=== PATIENT | female | born 1940 | race Caucasian/White ===

== ENCOUNTER 2016-08-06 11:47 | Emergency (ER) | payer OTHER, MEDICAID ==
[2016-08-06 12:05] VITALS: TEMP 98.4
[2016-08-06] MEDS ORDERED: NS 1,000 ML IV ONE (12:51)
[2016-08-06] MEDS ORDERED: HYDROmorphONE/DILAUDID 1 MG/ML SYR IVP ONE (12:51)
[2016-08-06] MEDS ORDERED: METOCLOPRAMIDE 10 MG/2 ML VIAL IVP ONE (12:51)
--- NOTE | 2016-08-06 13:01 | EDPHY ---
H & P Stated Complaint: htn/awakened with saldivar not responding to meds Time Seen by Provider: 08/06/16 12:41 HPI/ROS: CHIEF COMPLAINT: Headache and high blood pressure HISTORY OF PRESENT ILLNESS: The patient is a 75-year-old female who comes to the emergency department with her family complaining of a headache and high blood pressure. She is not sure which began 1st. Headache began this morning when she awoke. She does not have any focal weakness or numbness. She does not feel nauseous. she denies any trauma. This is not the worst headache of her life. She states she had one similar about 2 weeks ago when she had a cold but those symptoms have since resolved. No fever. She does also have neck stiffness and pain with turning her head. REVIEW OF SYSTEMS: Constitutional: denies: chills, fever, recent illness, recent injury EENTM: denies: blurred vision, double vision, nose congestion Respiratory: denies: cough, shortness of breath Cardiac: denies: chest pain, irregular heart rate, lightheadedness, palpitations Gastrointestinal/Abdominal: denies: abdominal pain, diarrhea, nausea, vomiting, blood streaked stools Genitourinary: denies: dysuria, frequency, hematuria, pain Musculoskeletal: denies: joint pain, muscle pain Skin: denies: lesions, rash, jaundice, bruising Neurological: See HPI denies: numbness, paresthesia, tingling, dizziness, weakness Hematologic/Lymphatic: denies: blood clots, easy bleeding, easy bruising Immunologic/allergic: denies: HIV/AIDS, transplant EXAM: GENERAL: Well-appearing, well-nourished and in no acute distress. HEAD: Atraumatic, normocephalic. EYES: Pupils equal round and reactive to light, extraocular movements intact, sclera anicteric, conjunctiva are normal. ENT: TMs normal, nares patent, oropharynx clear without exudates. Moist mucous membranes. NECK: Mild pain and muscle spasming, improves with massage. LUNGS: Breath sounds clear to auscultation bilaterally and equal. No wheezes rales or rhonchi. HEART: Regular rate and rhythm without murmurs, rubs or gallops. ABDOMEN: Soft, nontender, normoactive bowel sounds. No guarding, no rebound. No masses appreciated. BACK: No CVA tenderness, no spinal tenderness, step-offs or deformities EXTREMITIES: Normal range of motion, no pitting or edema. No clubbing or cyanosis. NEUROLOGICAL: Cranial nerves II through XII grossly intact. Normal speech, normal gait. 5/5 strength, normal movement in all extremities, normal sensation PSYCH: Normal mood, normal affect. SKIN: Warm, dry, normal turgor, no visible rashes or lesions. Source: Patient Exam Limitations: No limitations - Personal History Current Tetanus Diphtheria and Acellular Pertussis (TDAP): Yes - Medical/Surgical History Hx Asthma: No Hx Chronic Respiratory Disease: No Hx Diabetes: No Hx Cardiac Disease: No Hx Renal Disease: No Hx Cirrhosis: No Hx Alcoholism: No Hx HIV/AIDS: No Hx Splenectomy or Spleen Trauma: No Other PMH: htn/choly - Family History Significant Family History: No pertinent family hx - Social History Smoking Status: Never smoked Alcohol Use: Sober Drug Use: None Constitutional: Initial Vital Signs Temperature (C) 36.9 C 08/06/16 12:02 Heart Rate 94 08/06/16 12:02 Respiratory Rate 18 08/06/16 12:02 Blood Pressure 213/86 H 08/06/16 12:02 O2 Sat (%) 94 08/06/16 12:02 O2 Delivery Mode Room Air O2 (L/minute) 2 Allergies/Adverse Reactions: No Known Allergies Allergy (Unverified 08/06/16 12:02) Home Medications: Medication Instructions Recorded Bp Med 08/06/16 Diclofenac Sodium 08/06/16 Metoclopramide [Reglan 10 mg tab 10 mg PO BID PRN #10 tab 08/06/16 (RX)] Medical Decision Making - Diagnostics Imaging: Discussed imaging studies w/ semiconductor dies loader Radiologist ED Course/Re-evaluation: 1:45 p.m. the patient is now receiving her headache medication. We discussed her CT results which are reassuring. She continues to have headache. It is not surrounding her maxillary sinus. We will treat her for her headache and observe her blood pressure. 2:30 p.m. the patient is feeling completely better. She states her headache is gone. She is moving her neck left and right without difficulty. Blood pressure is now 150/70. She is eager to go home. We will give her prescription for Reglan in case her headache returns. She remains afebrile with stable vital signs Differential Diagnosis: Partial list of the Differential diagnosis considered include but were not limited to; acute headache, migraine, subarachnoid, hypertensive urgency and although unlikely based on the history and physical exam, I also considered acute coronary disease, dissection masses, meningitis. I discussed these differential diagnoses and the plan with the patient as well as the usual and expected course. The patient understands that the diagnosis is provisional and that in medicine we are not always correct and that further workup is often warranted. Usual and customary warnings were given. All of the patient's questions were answered. The patient was instructed to return to the emergency department should the symptoms at all worsen or return, otherwise to followup with the physician as we discussed. - Data Points Laboratory Results: Laboratory Results 08/06/16 12:33 08/06/16 12:33 Medications Given: Discontinued Medications Diphenhydramine HCl (Benadryl Injection) 25 mg IVP EDNOW ONE Stop: 08/06/16 12:52 Last Admin: 08/06/16 13:53 Dose: 25 mg Hydromorphone HCl (Dilaudid) 0.5 mg IVP EDNOW ONE Stop: 08/06/16 12:52 Last Admin: 08/06/16 13:53 Dose: 0.5 mg Sodium Chloride (Ns) 1,000 mls @ 0 mls/hr IV ONCE ONE PRN Reason: Wide Open Stop: 08/06/16 12:52 Last Admin: 08/06/16 13:53 Dose: 1,000 mls Metoclopramide HCl (Reglan Injection) 10 mg IVP EDNOW ONE Stop: 08/06/16 12:52 Last Admin: 08/06/16 13:54 Dose: 10 mg Departure - Departure Disposition: Home, Routine, Self-Care Clinical Impression: Headache Qualifiers: Headache type: unspecified Headache chronicity pattern: acute headache Intractability: not intractable Qualified Code(s): R51 - Headache Hypertension Qualifiers: Hypertension type: essential hypertension Qualified Code(s): I10 - Essential ( primary) hypertension Condition: Fair Instructions: Acute Headache (ED), Hypertension (ED) Additional Instructions: Seo nuevo medicamento se llama Metoclopramide [Reglan 10 miligramos] tome 10 miligramos oral dos veces por jaskaran santo necesite. Fije albin de seguimiento con seo medico de cabecera. Referrals: [facility] [Other] - As per Instructions Prescriptions: Metoclopramide [Reglan 10 mg tab (RX)] 10 mg PO BID PRN #10 tab PRN Reason: Headache Print Language: Tristanian
[2016-08-06 13:03] LABS: % IMMATURE GRANULYOCYTES 0.3 % (0.0-1.1); ABSOLUTE IMMATURE GRANULOCYTES 0.04 10^3/uL (0.00-0.10); ADD DIFF? NO; ADD MORPH? NO; ADD SCAN? NO; ATYPICAL LYMPHOCYTE FLAG 40 (0-99); FRAGMENT RBC FLAG 0 (0-99); HEMATOCRIT 44.8 % (38.0-47.0); LEFT SHIFT FLG 10 (0-99); LIPEMIA HEMOLYSIS FLAG 80 (0-99); MEAN CELL HEMOGLOBIN CONCENTR. 33.5 g/dL (32.4-36.7); MEAN CELL VOLUME 83.7 fL (81.5-99.8); MEAN PLATELET VOLUME 9.8 fL (8.7-11.7); PLATELET CLUMPS FLAG 0 (0-99); PLATELET COUNT 329 10^3/uL (150-400); RED BLOOD CELL COUNT 5.35 10^6/uL (4.18-5.33); RED CELL DISTRIBUTION WIDTH 12.7 % (11.5-15.2)
[2016-08-06 13:06] LABS: INR 1.06 (0.83-1.16); PROTIME(PATIENT) 13.7 SEC (12.0-15.0)
[2016-08-06 13:13] LABS: ANION GAP 10 mEq/L (8-16); CALCIUM 9.2 mg/dL (8.5-10.4); CARBON DIOXIDE 26 mEq/l (22-31); CHLORIDE 101 mEq/L (97-110); CREATININE 0.6 mg/dL (0.6-1.0); GLOMERULAR FILTRATION RATE > 60; GLUCOSE 113 mg/dL (70-100); POTASSIUM 3.6 mEq/L (3.5-5.2); SODIUM 137 mEq/L (134-144)
[2016-08-06 14:28] VITALS: RESP 16
[2016-08-06 15:00] VITALS: BP 164/84; PULSE 74; O2SAT 92
== END 2016-08-06 14:58 | disposition home or self-care (01) ==
DX: R51 Headache (principal); I10 Essential (primary) hypertension
CPT/HCPCS: 70450; 96361; 96374; 96375; 99285; J1170; J1200; J2765